=== PATIENT | female | born 1970 | race American Indian/Alaskan Native ===

== ENCOUNTER 2016-10-11 13:04 | Outpatient (CLI) | payer OTHER ==
--- NOTE | 2016-10-12 09:56 | Mammography Report ---
BILATERAL DIGITAL SCREENING MAMMOGRAM with CAD: 10/11/16 13:04:00 CLINICAL: Baseline screening. FINDINGS: The breasts are almost entirely fatty. An oval partially circumscribed right upper outer periareolar mass or cyst requires additional imaging.No architectural distortion or suspicious calcifications.The left breast is negative. IMPRESSION: Right asymmetry requiring further workup. BI-RADS CATEGORY: 0 -- Additional Imaging Evaluation Required RECOMMENDATION: Recall for a targeted right breast ultrasound. ACR BI-RADS MAMMOGRAPHIC CODES: 0 = Needs additional imaging evaluation; 1 = Negative; 2 = Benign; 3 = Probably benign; 4 = Suspicious; 5 = Malignant; 6 = Known biopsy-proven malignancy COMMENT: 1. Dense breast tissue, i.e., adenosis, fibrocystic changes, etc., may obscure an underlying neoplasm. 2. Approximately 10% of cancers are not detected with mammography. 3. A negative mammography report should not delay biopsy if a clinically suspicious mass is present. COMMENT: Patient follow-up letters are generated via our [employer] application.
== END 2016-10-11 13:05 | disposition home or self-care (01) ==
LOC: SPVWC 13:04
PROVIDERS: ATTEND Family Medicine
DX: Z12.31 Encounter for screening mammogram for malignant neoplasm of breast (principal)
CPT/HCPCS: 77067; G0202

== ENCOUNTER 2016-11-08 13:06 | Outpatient (CLI) | payer OTHER ==
--- NOTE | 2016-11-08 14:10 | Ultrasound Report ---
RIGHT BREAST ULTRASOUND: 11/08/16 13:06:00 CLINICAL: Right breast mass on screening mammogram. COMPARISON: 10/11/16 mammogram. FINDINGS: Ultrasound of the right breast was performed and demonstrated a solid heterogeneous hypoechoic mass 9:30 o'clock 3 cm from the nipple. It has a mild lobular contour, measures 1.6 x 0.7 x 1.3 cm and correlates with the mammographic mass. Additional mammographic views are not required. IMPRESSION: A probably benign 1.6 cm right breast mass at 9:30 o'clock 3 cm from the nipple. Sonographic characteristics suggest benign fibroadenoma. I discussed the options of imaging followup at six-month intervals over 2 years versus an ultrasound guided needle biopsy. She prefers to do ultrasound followup. BI-RADS 3 - - Probably Benign RECOMMENDATION: Six-month followup right breast ultrasound.
== END 2016-11-08 13:07 | disposition home or self-care (01) ==
LOC: SPVWC 13:06
PROVIDERS: ATTEND Family Medicine
DX: N63 Unspecified lump in breast (principal)

== ENCOUNTER 2018-07-30 14:38 | Outpatient (CLI) | payer OTHER ==
--- NOTE | 2018-07-30 16:23 | Mammography Report ---
BILATERAL DIGITAL DIAGNOSTIC MAMMOGRAM with CAD and RIGHT BREAST ULTRASOUND: 07/30/18 CLINICAL: Followup right breast mass. She lost her insurance and did not return for followup as recommended on 11/08/16 COMPARISON:11/08/16 mammogram and right breast ultrasound. FINDINGS: There are bilateral scattered fibrolinear densities.An oval circumscribed right upper outer periareolar mass is stable compared to the previous exam. It measures 1.8 cm. No other mass. No architectural distortion or suspicious calcifications. Left breast is negative.. Targeted ultrasound of the right breast demonstrated an oval solid heterogeneous hypoechoic mass at 9:30 o'clock 4 cm from the nipple. It measures 1.7 x 0.7 x 1.1 cm compared to 1.6 x 0.7 x 1.3 cm on the last exam. It has a slightly more lobular contour and appears to have lost some volume since the last exam. IMPRESSION: A benign 1.7 cm right breast mass at 9:30 o'clock. Negative left breast. BI-RADS CATEGORY: 2 -- Benign RECOMMENDATION: Routine mammographic screening in one year. ACR BI-RADS MAMMOGRAPHIC CODES: 0 = Needs additional imaging evaluation; 1 = Negative; 2 = Benign; 3 = Probably benign; 4 = Suspicious; 5 = Malignant; 6 = Known biopsy-proven malignancy COMMENT: 1. Dense breast tissue, i.e., adenosis, fibrocystic changes, etc., may obscure an underlying neoplasm. 2. Approximately 10% of cancers are not detected with mammography. 3. A negative mammography report should not delay biopsy if a clinically suspicious mass is present. COMMENT: Patient follow-up letters are generated by our [employer] application.
== END 2018-07-30 14:39 | disposition home or self-care (01) ==
LOC: SPVWC 14:38
PROVIDERS: ATTEND Nurse Practitioner Gerontology
DX: R92.8 Other abnormal and inconclusive findings on diagnostic imaging of breast (principal)
CPT/HCPCS: 77066